=== PATIENT | male | born 1980 | race Caucasian/White ===

== ENCOUNTER 2018-10-22 20:44 | Emergency (ER) | payer OTHER ==
[~2018-10-22] VITALS: Ht 180.3 cm; Wt 113.4 kg
[~2018-10-22 20:44] MED LIST: BACTRIM DS 8001 TA1 PO; BANOPHEN50 MG PO; KENALOG 0.1%80 GM T; MIRTAZAPINE15 M2 PO; MOTRIN800 MG PO; NKHM; NO MEDS; PREDNISONE20 M1 PO; VICODIN 5/500 505 MG PO; VITAMIN D50000 I3 PO; ZITHROMAX TRI-500 MG PO
== END 2018-10-22 22:11 | disposition home or self-care (01) ==
LOC: ED 20:44
DX: T63.441A Toxic effect of venom of bees, accidental (unintentional), initial encounter (principal); F17.200 Nicotine dependence, unspecified, uncomplicated; F12.10 Cannabis abuse, uncomplicated; Z79.899 Other long term (current) drug therapy; Y92.89 Other specified places as the place of occurrence of the external cause

== ENCOUNTER 2020-08-26 12:50 | Emergency (ER) | payer OTHER ==
[~2020-08-26] VITALS: Wt 108.9 kg
== END 2020-08-26 15:06 | disposition home or self-care (01) ==
LOC: ED 12:50
DX: S93.401A Sprain of unspecified ligament of right ankle, initial encounter (principal); Z79.899 Other long term (current) drug therapy; Z98.890 Other specified postprocedural states; X50.1XXA Overexertion from prolonged static or awkward postures, initial encounter; Y93.89 Activity, other specified; Y92.89 Other specified places as the place of occurrence of the external cause; Y99.8 Other external cause status

== ENCOUNTER 2021-10-20 22:38 | Emergency (ER) | payer OTHER ==
[~2021-10-20] VITALS: Ht 177.8 cm; Wt 108.9 kg
== END 2021-10-21 00:52 | disposition home or self-care (01) ==
LOC: ED 22:38
DX: S46.812A Strain of other muscles, fascia and tendons at shoulder and upper arm level, left arm, initial encounter (principal); I10 Essential (primary) hypertension; K21.9 Gastro-esophageal reflux disease without esophagitis; F17.200 Nicotine dependence, unspecified, uncomplicated; F12.10 Cannabis abuse, uncomplicated; Z88.6 Allergy status to analgesic agent; X50.1XXA Overexertion from prolonged static or awkward postures, initial encounter; Y93.01 Activity, walking, marching and hiking; Y92.69 Other specified industrial and construction area as the place of occurrence of the external cause; Y99.9 Unspecified external cause status

== ENCOUNTER → 2022-06-13 | Day surgery (SDC) | payer OTHER ==
[~2022-06-13] VITALS: Ht 180.3 cm; Wt 111.1 kg
[~2022-06-13] MED LIST changes: +HYDROCODONE-AC1 EAC1 PO; +LOSARTAN POTASS25 M1 PO; +MELOXICAM15 MG PO; +OMEPRAZOLE20 M3 PO; +VITAMIN D250 MCG PO
[2022-06-13 09:19] VITALS: BP 131/86
[2022-06-13 11:00] VITALS: BP 132/45
[2022-06-13 11:15] VITALS: BP 130/83
[2022-06-13 11:30] VITALS: BP 129/86
== END | disposition home or self-care (01) ==
LOC: SDC 06-06 10:15
PROVIDERS: ATTEND Surgery
DX: L72.0 Epidermal cyst (principal); I10 Essential (primary) hypertension; K21.9 Gastro-esophageal reflux disease without esophagitis; F43.10 Post-traumatic stress disorder, unspecified; F32.A Depression, unspecified; F17.210 Nicotine dependence, cigarettes, uncomplicated; Z79.899 Other long term (current) drug therapy

== ENCOUNTER → 2023-01-30 | Outpatient (CLI) | payer OTHER | END | disposition home or self-care (01) | LOC: RAD 15:50 | PROVIDERS: ATTEND Nurse Practitioner Family | DX: M54.50 Low back pain, unspecified (principal); M54.2 Cervicalgia ==

== ENCOUNTER → 2024-08-01 | Outpatient (CLI) | payer OTHER | END | disposition home or self-care (01) | LOC: RAD 12:42 | PROVIDERS: ATTEND Nurse Practitioner Family | DX: R05.3 Chronic cough (principal) ==